=== PATIENT | female | born 1960 | race Caucasian/White ===

== ENCOUNTER 2016-06-15 09:48 | Outpatient (CLI) | payer OTHER ==
--- NOTE | 2016-06-15 11:00 | DIAGNOSTIC IMAGING REPORT ---
PROCEDURE: US COMPLETE PELVIC W/TRANSVAG INDICATION: PELVIC PAIN TECHNIQUE: Transabdominal and endovaginal willard scale and color Doppler sonographic images of the female pelvis were obtained. COMPARISON: None. FINDINGS: TRANSABDOMINAL SCANS: The uterus is of normal size 6.7 x 4.9 x 5.3 cm Kidneys are normal. TRANSVAGINAL SCANS: The uterus is anteverted. There is a 17 mm fibroid. The endometrium measures 6.8 mm. Right ovary is normal measuring 3.0 x 2.8 x 2.0 cm The left ovary is normal measuring 2.7 x 1.9 x 1.9 cm There is a trace of free fluid. IMPRESSION: 1. 17 mm uterine fibroid. 2. 6.8 mm thick endometrium.
== END 2016-06-15 23:00 ==
LOC: US SRH 09:48
DX: R10.2 Pelvic and perineal pain (principal); D25.9 Leiomyoma of uterus, unspecified

== ENCOUNTER 2016-07-11 09:24 | Outpatient (CLI) | payer OTHER ==
[2016-07-11] MEDS ORDERED: CITALOPRAM HYDR20 MG PO (16:34)
[2016-07-11] MEDS ORDERED: LEVOTHYROXINE200 MCG PO (16:34)
[2016-07-11] MEDS ORDERED: VITAMIN B COMPLE1 PO (16:35)
[2016-07-11] MEDS ORDERED: TURMERIC CURCU500 MG PO (16:35)
== END 2016-07-11 23:00 ==
LOC: LAB SRH 09:24
DX: N93.9 Abnormal uterine and vaginal bleeding, unspecified (principal)
CPT/HCPCS: 90001; 90047; 90074; 90155; 90364; 91004; 92863; 95059; 98428

== ENCOUNTER 2016-07-13 06:21 | Day surgery (SDC) | payer OTHER ==
[~2016-07-13] VITALS: Ht 162.6 cm; Wt 73.9 kg
[~2016-07-13 06:21] MED LIST: CITALOPRAM HYDR20 MG PO; LEVOTHYROXINE200 MCG PO; TURMERIC CURCU500 MG PO; VITAMIN B COMPLE1 PO
--- NOTE | 2016-07-13 09:14 | Operative Report ---
Operative Report Date of Surgery: 07/13/2016 Preoperate Diagnosis: Abnormal uterine bleeding Postoperative Diagnosis: Abnormal uterine bleeding Surgeon: Tata Wilkins MD Procedure Performed: Hysteroscopy, Dilation and Curettage, Novasure endometrial ablation Anesthesia: General with LMA Indications: Abnormal uterine bleeding Surgical Technique: The patient was taken to the operating room where general anesthesia was administered with the use of an LMA. The patient was then placed in dorsal lithotomy position and her vagina was prepped and draped in the normal sterile fashion. Her bladder was drained with a straight in and out catheter. A time out was performed. A weighted speculum was then placed in the posterior aspect of the vagina and a right angle retractor was used to visualize the cervix. The cervix was then grasped at the 12 o'clock position using a single-tooth tenaculum. The cervix was then dilated up to 8 Malay using Hegar dilators. The uterus was sounded to 9 cm, with a cervical length of 4 cm. Hysteroscopy was performed, and showed thickened endometrium. Sharp curettage was then performed, and the specimens were sent to pathology labeled as endometrial curettings. The NovaSure device was then taken from its package. After assuring that the device itself would open appropriately, it was placed through the cervical os up to the level of the fundus. The device was then engaged and rotated 45 clockwise and counterclockwise to measure cavity width. This was a 3.7 cm. The NovaSure device was then started and ablated the endometrium for 1 minute and 13 seconds. Following the completion of the ablation, the device was removed and the hysteroscope was used to look inside the uterus. The endometrium had the appropriate charred appearance of an ablated endometrium. The tenaculum was then taken off of the the cervix and all retractors were removed from the vagina. The patient was placed back in supine position, awoken from general anesthesia, and taken to the PACU in stable condition. All sponge lap and needle counts were correct x2.
--- NOTE | 2016-07-13 09:18 | Postoperative Progress Note ---
Postop Progress Note Preoperate Diagnosis: Abnormal uterine bleeding Postoperative Diagnosis: Abnormal uterine bleeding Surgeon: Tata Wilkins MD Anesthesia: LMA Findings: Thickened endometrial lining Procedure: Hysteroscopy, Dilation and Curettage, Novasure endometrial ablation Complications? No Condition: Good EBL: 10cc Fluid(s): 600cc Blood Administered: no Specimen(s) removed? Yes Specimen removed/disposition: Endometrial curettings Grafts or Implants? No . (See nursing notes for details of grafts/implants)
[2016-07-13] MEDS ORDERED: NORCO1 TA1 PO (09:23)
[2016-07-13] MEDS ORDERED: IBUPROFEN600 MG PO (09:24)
--- NOTE | 2016-07-13 09:25 | Provider's Discharge Care Plan ---
Problem, Goal, Plan Problem List 1. S/P endometrial ablation Goals: Improve disease control, Improved health/wellness, Increase independence, No readmissions Instructions: Follow up as directed, Take meds as directed
[2016-07-13 10:48] VITALS: BP 122/50
== END 2016-07-13 11:25 | disposition home or self-care (01) ==
LOC: OR SRH 06:21 → SCU SRH 06:21 → OR SRH 07:30
PROVIDERS: Obstetrics & Gynecology
PROC: 0UDB8ZX Extraction of Endometrium, Via Natural or Artificial Opening Endoscopic, Diagnostic (ICD-10-PCS; principal; 2016-07-13 08:00)
PROC: 0U5B8ZZ Destruction of Endometrium, Via Natural or Artificial Opening Endoscopic (ICD-10-PCS; principal; 2016-07-13 08:00)
DX: N93.9 Abnormal uterine and vaginal bleeding, unspecified (principal)
CPT/HCPCS: 29229; 29240; 50002; 60001; 70002; 80212; 80575; 83433